=== PATIENT | female | born 1960 | race Caucasian/White ===

== ENCOUNTER 2019-09-11 06:54 | Inpatient (IN) ==
--- NOTE | 2019-08-22 10:07 | PAT Medication Instructions ---
Medication Instructions Date of Service August 22, 2019 Home Medications empagliflozin [Jardiance] 25 mg PO QAM hydrochlorothiazide 12.5 mg PO QAM metformin 1,000 mg PO BID DO NOT take the morning of surgery empagliflozin [Jardiance] 25 mg PO QAM hydrochlorothiazide 12.5 mg PO QAM metformin 1,000 mg PO BID Take evening before surgery metformin 1,000 mg PO BID Other Notes If you have any questions please call us at [phone] or [phone] or [phone] or [phone]
--- NOTE | 2019-08-22 14:41 | Anesthesiology Consultation ---
Date of Service August 22, 2019 Assessment & Plan (1) Encounter for pre-operative examination: CHECK BSG AM DOS Chart Review Chart Review: Acceptable Risk for Surgery (PENDING SURGEON-ORDERED PCP AND CARDIO CLEARANCES) and Patient seen in Pre Admission Testing Teaching & Discussion Instructed NPO after midnight before surgery, except medications with 15 cc of water. Medication instructions provided according to the PAT guidelines. History Surgery Operation Date: 09/11/19 09:15 Proposed Procedures p Left Total Knee Arthroplasty - Jatin Garibay DO Height/Weight Height: 5 ft 9 in Weight: 97.3 kg Allergies Allergy/AdvReac Type Severity Reaction Status Date / Time celecoxib AdvReac Unknown "made my Verified 08/16/19 10:35 legs swell" Medications Home Medications Medication Instructions Recorded Confirmed Last Taken empagliflozin [Jardiance] 25 mg PO QAM 08/16/19 08/16/19 Unknown hydrochlorothiazide 12.5 mg PO QAM 08/16/19 08/16/19 Unknown metformin 1,000 mg PO BID 08/16/19 08/16/19 Unknown Past Medical History Medical History Arthritis Bradycardia Asymptomatic Diabetes mellitus, type 2 Hiatal hernia Hypertension Obesity Exercise / Class Metabolic Activity II 4-5 Yardwork/Stairs/Walk up hill (DENIES CP OR SOB WITH 1 FOS) Past Family History Family History Brother Family hx of colon cancer AND ESOPHAGEAL CANCER Past Surgical History Surgical History (Updated 08/23/19 @ 13:29 by Lai Espinosa) History of bilateral tubal ligation History of cardiac cath For abnormal stress test. No stents placed. History of colonoscopy X MULTIPLE History of esophagogastroduodenoscopy (EGD) WITH DILITATION X 2-3 History of open reduction and internal fixation (ORIF) procedure LEFT ANKLE History of total hip arthroplasty R/L History of total knee replacement RIGHT Past Anesthesia History No Hx of Anesthesia Complications (OTHER THAN UNPLEASANT AWARENESS WITH TKA) and No Family Hx of Anesthesia Complications History of PONV No Hx of PONV and No Hx of Motion Sickness Social History Smoking Status: Never smoker Do You Dip or Chew Tobacco: No Hx Alcohol Use: No Hx Substance Use: No Review of Systems Pt denies any recent chest pain, shortness of breath, palpitations, cough, fever or URI. Physical Exam Vital Signs BP: 112/62 P: 59bpm SPO2: 98% RA T: 97.8 F R: 16 ENMT Mouth: + dentures (partial upper and lower), + poor dentition and + loose teeth (upper L incisor is VERY loose); no chipped teeth Thyromental Distance: > or= 3.5 Finger Breadths (4) Mallampati Class: I Mouth / Teeth: 1. VERY LOOSE Neck normal visual inspection; neck extension not limited Respiratory normal respiratory effort Auscultation: lungs clear to auscultation bilaterally Cardiovascular Rate/Rhythm: regular rhythm and + bradycardic Heart Sounds: no murmur Vessels: no carotid bruit Testing Laboratory Results 08/22/19 14:14 08/22/19 14:14 PT 10.9 Seconds (9.0-12.0) 08/22/19 14:14 INR 1.1 (0.9-1.1) 08/22/19 14:14 APTT 26.3 Seconds (21.0-31.0) 08/22/19 14:14 Hemoglobin A1c 7.5 % (4.5-5.6) H 08/22/19 14:14 Urine Color Yellow 08/22/19 Unknown Urine Appearance Clear (Clear) 08/22/19 Unknown Urine pH 6.5 (4.5-7.5) 08/22/19 Unknown Ur Specific [place] 1.045 (1.000-1.030) H 08/22/19 Unknown Urine Protein Negative (Negative) 08/22/19 Unknown Urine Glucose (UA) 3+ (Negative) H 08/22/19 Unknown Urine Ketones Negative (Negative) 08/22/19 Unknown Urine Nitrite Negative (Negative) 08/22/19 Unknown Ur Leukocyte Esterase Negative (Negative) 08/22/19 Unknown Blood Type B Positive 08/22/19 14:14 Antibody Screen NEGATIVE 08/22/19 14:14 08/22/19 Unknown Urine Culture - Preliminary Urine,Clean Catch No growth - Less than 1,000 colonies/mL, Final report to follow. *Surgeon's office flagged re: elevated BSG/A1C Electrocardiogram Date: 08/22/19 Findings: + SB @ (49) Nonspecific ST abnormality. Compared with EKG of 01/12/2018, no significant change was found. Chest X-Ray Date: 08/22/19 Findings: + NAD Fixed hiatal hernia. Echocardiogram Date: 01/27/18 EF: 70% Left ventricular cavity size is normal. The LV wall thickness is normal. RV cavity size and systolic function are normal. LV diastolic function is normal. No significant valvular abnormalities noted. No pericardial effusion. Normal IVC size and collapsibility with inspiration.
--- NOTE | 2019-08-22 14:52 | XRay Report ---
XR chest Pre-admission PA/Lat CLINICAL HISTORY: pat preoperative evaluation COMPARISON STUDY: 07/31/2015 FINDINGS: Fixed hiatal hernia. Diaphragms are smooth. Lungs are clear. IMPRESSION: No acute process. Fixed hiatal hernia. ACT 112: Negative or not required by law. The above report was generated using voice recognition software. It may contain grammatical, syntax or spelling errors. Electronically signed by: Andriy Johnson M.D. 08/22/2019 2:51 PM
[2019-08-22 15:07] LABS: Basophils # (auto) 0.01 K/uL (0-0.2); Basophils % (auto) 0.2 %; Eosinophils # (auto) 0.09 K/uL (0-0.5); Eosinophils % (auto) 1.8 %; Hematocrit (blood only) 43.4 % (37-47); Hemoglobin 14.1 g/dL (12.0-16.0); Immature Granulocytes # (auto) 0.01 K/uL (0.00-0.02); Immature Granulocytes % (auto) 0.2 %; Lymphocytes # (auto) 1.43 K/uL (1.2-3.4); Lymphocytes % (auto) 28.7 %; Mean Corpuscular Hemoglobin 27.5 pg (25-34); Mean Corpuscular Hgb Conc 32.5 g/dL (32-36); Mean Corpuscular Volume 84.6 fL (80-100); Mean Platelet Volume 12.5 fL (7.4-10.4); Monocytes # (auto) 0.31 K/uL (0.11-0.59); Monocytes % (auto) 6.2 %; Neutrophils # (auto) 3.13 K/uL (1.4-6.5); Neutrophils % (auto) 62.9 %; Platelet Count 178 K/uL (130-400); RDW Coefficient of Variation 13.4 % (11.5-14.5); RDW Standard Deviation 41.1 fL (36.4-46.3); Red Blood Count 5.13 M/uL (4.2-5.4); White Blood Count 4.98 K/uL (4.8-10.8)
[2019-08-22 15:09] LABS: Appearance Urine Clear (Clear); Bilirubin Urine Negative (Negative); Blood Urine Negative (Negative); Color Urine Yellow; Glucose Urine UA 3+ (Negative); Ketones Urine Negative (Negative); Leukocyte Esterase Urine Negative (Negative); Nitrite Urine Negative (Negative); Protein Urine Negative (Negative); Specific Gravity Urine 1.045 (1.000-1.030); Urobilinogen Urine Negative (Negative); pH Urine 6.5 (4.5-7.5)
[2019-08-22 15:18] LABS: INR 1.1 (0.9-1.1); Partial Thromboplastin Time 26.3 Seconds (21.0-31.0); Prothrombin Time 10.9 Seconds (9.0-12.0)
[2019-08-22 15:20] LABS: Albumin Level 3.7 gm/dl (3.4-5.0); BUN Creatinine Ratio 14.3 (10-20); Calcium 9.4 mg/dl (8.5-10.1); Est GFR (African American) 78.1; Est GFR (Non-African American) 67.3; Potassium 3.4 mmol/L (3.5-5.1)
--- NOTE | 2019-08-22 15:35 | Electrocardiogram Report ---
Test Reason : Blood Pressure : / mmHG Vent. Rate : 049 BPM Atrial Rate : 049 BPM P-R Int : 190 ms QRS Dur : 096 ms QT Int : 474 ms P-R-T Axes : 069 043 055 degrees QTc Int : 428 ms Sinus bradycardia Nonspecific ST abnormality Abnormal ECG When compared with ECG of 12-JAN-2018 12:38, No significant change was found Confirmed by Augustine Saeed ([id number]) on 08/22/2019 3:35:34 PM Referred By: Jatin Garibay Confirmed By:Augustine Saeed
[2019-08-23 05:41] LABS: Estimated Average Glucose 169 mg/dl; Hemoglobin A1C 7.5 % (4.5-5.6)
--- NOTE | 2019-09-10 20:51 | History & Physical Report ---
Date of Service September 10, 2019 Assessment & Plan (1) Degenerative joint disease of left knee: I have indicated the patient for left total knee replacement. The risks, benefits and complications of surgery were explained to the patient which include but not limited to infection, acute blood loss, DVT/PE, injury to nerves, vessels, bone, soft tissue, arthrofibrosis, chronic pain, failure of the prosthesis, knee dislocation, leg length discrepancy, need for additional surgery, cardiac and pulmonary events and . The patient wished to proceed with surgery and informed consent was obtained at this time. We will plan for ASA BID post-operatively for DVT prophylaxis. Upon discharge the patient will be discharged home with home health services. Appropriate clearances by PCP and cardiology were obtained. History of Present Illness Chief Complaint: Left knee pain/djd Primary Care Provider: Tessy Hazel MD The patient is a 59 year old female who presents with complaints of severe left knee pain and DJD. The patient has failed outpatient conservative treatments to this point which included NSAIDs, corticosteroid injection, physical therapy and a home exercise/walking program. The patient's pain and limited function have progressed to the point where they severely hinder their activities of daily living and they no longer tolerate exercise programs. They are requesting to proceed with total knee replacement surgery. Allergies Allergy/AdvReac Type Severity Reaction Status Date / Time celecoxib AdvReac Unknown "made my Verified 09/11/19 07:17 legs swell" Home Medications Home Medications Medication Instructions Recorded Confirmed Type empagliflozin [Jardiance] 25 mg PO QAM 08/16/19 08/16/19 History hydrochlorothiazide 12.5 mg PO QAM 08/16/19 08/16/19 History metformin 1,000 mg PO BID 08/16/19 08/16/19 History Past Med/Surg History Medical History (Updated 09/11/19 @ 07:14 by Huma Salgado RN) Arthritis Bradycardia Asymptomatic Diabetes mellitus, type 2 Hiatal hernia Surgical History History of bilateral tubal ligation History of cardiac cath For abnormal stress test. No stents placed. History of colonoscopy X MULTIPLE History of esophagogastroduodenoscopy (EGD) WITH DILITATION X 2-3 History of open reduction and internal fixation (ORIF) procedure LEFT ANKLE History of total hip arthroplasty R/L History of total knee replacement RIGHT Family History Brother Family hx of colon cancer AND ESOPHAGEAL CANCER Social History Preferred Language: Ethiopian Communication Ability: Effective Fuels Engineer Required: No Beliefs That Will Affect Care: None Current Living Situation: Spouse Other Information That Helps Us Care for You: No Feels Safe at Home: Yes Safety Concerns: Feels Safe At This Time Smoking Status: Never smoker Do You Dip or Chew Tobacco: No ; Second Hand Exposure: Yes (FATHER SMOKED A PIPE) ; Hx Alcohol Use: No Hx Substance Use: No Review of Systems Review of Systems: All systems reviewed & are unremarkable except as noted in HPI & below Constitutional: as per Subjective / HPI Physical Exam Physical Exam: LLE NVSI +EHL/FHL/TA/GS SILT grossly, +2 DP pulse, compartments soft NT, limited painful ROM, 0-115 degrees of flexion, +crepitus. Constitutional: WD/WN, vitals as above Eyes: PERRL, conjunctivae normal, anicteric sclerae ENMT: external ear and nose normal, oropharynx normal Neck: trachea midline, no thyromegaly Respiratory: normal respiratory effort, lungs clear to auscultation Cardiovascular: RRR, no murmur, no edema Gastrointestinal (Abdomen): normal bowel sounds, soft, nontender, no hepatosplenomegaly Musculoskeletal: no cyanosis or clubbing, extremities motor strength 5/5 Skin: no rashes, warm and dry Neurologic: patellar DTR's 2+ bilat, sensation intact Psychiatric: A+Ox3, euthymic affect Lymphatic: no cervical or axillary lymphadenopathy Results & Data Diagnostic Findings Multiple views of the knee demonstrates severe tricompartmental DJD with complete loss of the patellofemoral and moderate loss of the medial and lateral joint space. +osteophytes, +sclerosis, +subchondral cysts.
[~2019-09-11 06:54] MED LIST: ACETAMINOPHEN 500 MG TAB PO SCH; BUPIVACAINE 0.25% 30 ML VIAL ONE; BUPIVACAINE 0.5 % 5 MG/1 ML PF 10ML VIAL ONE; CEFAZOLIN 2000MG 2,000 MG/15 ML SYR IV SCH; FAMOTIDINE 20 MG TAB PO SCH; GABAPENTIN 600 MG DOSE PO SCH; LR 15ML/HR IV SCH; METOCLOPRAMIDE HCL 10 MG TABLET PO SCH; ROPIVACAINE 0.5% HCL/PF 150 MG, BUPIVACAINE 0.5% MPF 30 ML, EPINEPHrine 30MG/30ML (OR U... INSTIL SCH; TRANEXAMIC ACID 1,000 MG **IV Intra-op IV SCH; TRANEXAMIC ACID 1,000 MG **IV Pre-op IV SCH; dexAMETHasone 4 MG TAB PO SCH
--- NOTE | 2019-09-11 07:19 | History & Physical Bridge Note ---
Date of Service September 11, 2019 History & Physical Bridge Note I have examined the patient, reviewed the History & Physical and in the interval since the performance of the History & Physical I have noted the following changes of clinical significance: no changes noted
[2019-09-11] MEDS ORDERED: ONDANSETRON INJ 2 MG/ML 2 ML VIAL IV PRN ×2 (08:02→12:50)
[2019-09-11] MEDS ORDERED: LABETALOL HCL IV 5 MG/ML 20ML IV PRN (08:02)
[2019-09-11] MEDS ORDERED: ePHEDrine sulfate 50 MG/ML AMP IV PRN (08:02)
[2019-09-11] MEDS ORDERED: PHENYLEPHRINE 100MCG/ML 5ML SYR IV PRN (08:02)
[2019-09-11] MEDS ORDERED: MEPERIDINE HCL 25 MG/ML CARP IV PRN (08:02)
[2019-09-11] MEDS ORDERED: ATROPINE SULFATE 0.1 MG/ML 10ML SYR IV PRN (08:02)
[2019-09-11] MEDS ORDERED: HYDROmorphone INJ 1 MG/ML SYRINGE IV PRN (08:02)
[2019-09-11] MEDS ORDERED: fentaNYL citrate 100 MCG/2 ML VIAL IV PRN (08:02)
[2019-09-11] MEDS ORDERED: MIDAZOLAM HCL 1 MG/ML 2ML VIAL ONE ×2 (08:37→09:28)
[2019-09-11] MEDS ORDERED: fentaNYL citrate 100 MCG/2 ML VIAL ONE (08:37)
[2019-09-11] MEDS ORDERED: BACITRACIN INJ 50,000 UNIT VIAL ONE (08:50)
[2019-09-11] MEDS ORDERED: ORTHO JOINT ANESTHETIC ONE (08:50)
[2019-09-11] MEDS ORDERED: LIDOCAINE HCL 2% 2 ML VIAL/AMP(20MG/ML) INFIL ONE (09:30)
[2019-09-11] MEDS ORDERED: PROPOFOL IV EMULSION 10 MG/ML 20 ML VIAL IV ONE ×2 (09:30→09:51)
--- NOTE | 2019-09-11 11:19 | Post Operative Brief Note ---
Immediate Post Op Note v1 Date of Surgery September 11, 2019 Pre & Post Diagnosis Operation Date: 09/11/19 09:10 Pre-Op Diagnosis: LEFT KNEE OSTEOARTHRITIS Post-Op Diagnosis: LEFT KNEE OSTEOARTHRITIS I identified the patient and participated in the time-out.: Yes Procedure Operation Date: 09/11/19 09:10 Actual Procedures p Left Total Knee Arthroplasty(Left) - Jatin Garibay DO Surgeon Jatin Garibay DO Port Surveyor Diaz Reyes Estimated Blood Loss 50 Findings Consistent with Post-Op Diagnosis Fluids 1000 cc LR Specimens Proximal tibia and distal femur bone fragments Anesthesia Type Spinal MAC Complications none Disposition Disposition: Recovery Room Overlapping Procedure I was present for: the critical portions of procedure. I was immediately available: during the entire case. Back up surgeon: was not required during procedure.
--- NOTE | 2019-09-11 11:21 | Operative Report ---
Post Operative Report Pre & Post Diagnosis Operation Date: 09/11/19 09:10 Pre-Op Diagnosis: LEFT KNEE OSTEOARTHRITIS Post-Op Diagnosis: LEFT KNEE OSTEOARTHRITIS I identified the patient and participated in the time-out.: Yes Procedure Operation Date: 09/11/19 09:10 Actual Procedures p Left Total Knee Arthroplasty(Left) - Jatin Garibay DO Surgeon Jatin Garibay DO Business Solutions Consultant Diaz Reyes Estimated Blood Loss 50 Findings Consistent with Post-Op Diagnosis Fluids 1000 cc LR Specimens Proximal tibia and distal femur bone fragments Anesthesia Type Spinal MAC Complications none Disposition Disposition: Recovery Room Indications The patient is a 59-year-old female presents with long history of severe left knee tricompartmental DJD and failed outpatient conservative treatments including NSAIDs, bracing, injections and home walking/exercise program. The patient's symptoms have progressed to the point where it has been difficult to perform normal activities of daily living. I have indicated the patient for a left total knee arthroplasty, the risks and benefits and complications of the procedure include but are not limited to infection bleeding damage to bone, nerves, vessels, surrounding soft tissue, blood clots, loss of function, leg length discrepancy, dislocation, failure of the components, need for additional surgery and . The patient wished to proceed with surgery at this time and informed consent was obtained. Appropriate clearances were obtained. Description of Procedure COMPONENTS USED: Reena persona knee system: Femur size 8, Tibia size D tibial articulating surface 10 PS, Patella 29 mm Following induction of spinal anesthesia, a tourniquet was applied to the proximal aspect of the thigh and the patient's left leg was prepped and draped in the usual sterile manner. A timeout was performed, patient identified and site giancarlo confirmed. Appropriate pre-operative IV antibiotics were given. The limb was exsanguinated with an Esmarch bandage and tourniquet was inflated to 300 mmHg. A longitudinal midline incision was made over the anterior knee. Subcutaneous tissue was sharply dissected down to fascia. Electrocautery was used for hemostasis. Next a parapatellar arthrotomy was performed. Patella was everted and the knee was flexed. A Lynn retractor was used to expose the synovium above on the anterior aspect of the femur and removed down to bone. Next, the anterior fat pad was removed to aid in visualization. The medial face of the tibia was cleared of soft tissue first with a Bovie and a rosales elevator. This tissue was retracted posteriorly using a blunt Hohmann. Next, the extra-medullary tibial cutting guide was placed to the anterior aspect of the tibia. The tibia resection level was set taking 2mm from the defective tibial condyle. Resection depth was once again confirmed with xiomara wing. The medial and lateral collateral ligament was protected with two Hohmann retractors. The tibia guide was removed and proximal tibial bone fragment removed utilizing straight osteotome, electrocautery and Jose. Next, the distal femur intramedullary canal was accessed utilizing the step drill. The intramedullary distal femur cutting guide was placed into the canal and pinned into place. The distal femur was cut on the 5 degree setting. Next the cutting guide was removed and the femur was sized. Care was taken to ensure appropriate battery checker all rotation and 3 degree holes were drilled. A size 8 4-in-1 cutting block was placed on the distal end of the femur and secured into place with two short headed screws. Two bent Hohmann retractors were placed to protect the medial and lateral collateral ligaments. The oscillating saw was used to cut anterior, posterior, anterior chamfer and posterior chamfer. The four and one cutting block was removed and bone fragments excised. Laminar survey party chief was placed laterally and the ACL and PCL were removed followed by the medial meniscus and posterior medial osteophytes. Aquamantys was utilized for any posterior medial bleeders and Orthomix injected into the posterior medial capsule. A laminar survey party chief was then placed in the medial compartment and the lateral meniscus and posterior osteophytes were removed. Aquamantys was utilized for any posterior lateral bleeders and Orthomix injected into the posterior lateral capsule. Next, drop candie and spacer block were placed with the leg in flexion and extension to assess alignment and flexion/extension gaps. Next, the proximal tibia was assessed and two bent Hohmans were placed medial and lateral to aid in visualization. The appropriate tibia size and rotation was selected and a size D tibial plate was pinned into place with appropriate rotation. Preparation of the tibia was completed utilizing the matching tibial drill and broach. I then turned my attention back to the distal femur in a trial femoral component was impacted into place. Appropriate femoral width was assessed and selected. Next the femur PS box cut guide was placed and cut made with the reciprocal saw and the PS box provisional placed. A trial size 10 PS tibia articular tray was placed and varus-valgus balance assessed in 0 degrees of extension and 30, 60 and 90 degrees of flexion. A final tibial articular surface size 10 PS was chosen. Assess was gained to the patella and caliper utilized to measure width. The patella reamer was utilized and remaining bone removed with oscillating saw. A size 29 mm patella button was selected and the patella pegs drilled. Trial patella button was placed and tracking was assessed. The knee was found to be well balanced, well aligned with excellent patella tracking. The trials were removed and final components were obtained and assembled. The knee was irrigated copiously with sterile saline solution mixed with bacitracin. Access to the proximal tibia was once again obtained utilizing to the Hohmans and the proximal tibia and distal femur were dried with lap sponges. The final components were cemented into place and all excess cement was removed. A trial tibial articular surface was placed while cemented hardened. Knee stability was once again assessed and the final component inserted. A Betadine soak was performed. After 3 minutes, the hip was once more irrigated with copious sterile saline solution with bacitracin. The knee was injected with the remaining Orthomix which includes a combination of Ropivicaine 0.5% 150mg, Bupivicaine 0.5%/Epinephrine 1:200,000 30ml, Toradol 30mg, Dexamethasone 4mg, Ketamine 10mg, Clonidine 100mcg and NSS 30ml solution. The capsulotomy was closed with #1 Vicryl followed by subcutaneous closure with 2-0 Vicryl suture and a 3-0 V-lock suture. Skin closure was performed using Prineo dressing followed by Telfa, 4 x 4s and soren wrap. Tourniquet was deflated at 97 minutes. The patient tolerated the procedure well and was taken to the PACU in stable condition. Due to the complex nature of the procedure, the entire surgery was performed with the operational assistance of Diaz Reyes PA-C. The gallery assistant, under direct supervision, was involved in the actual performance of all aspects of the surgical procedure including patient positioning, hemostasis, tissue retraction, instrument management and wound closure. I attest to the content of the Intraoperative Record and any orders documented therein. Any exceptions are noted below.
--- NOTE | 2019-09-11 12:10 | XRay Report ---
LEFT KNEE 2 VIEWS History: Left total knee arthroplasty. Degenerative arthritis. Postop. FINDINGS: The patient is status post a left total knee arthroplasty. The hardware is intact. No fract ure or dislocation. IMPRESSION: Left total knee arthroplasty. No evidence for hardware complication. ACT 112: Negative or not required by law. Electronically signed by: Dexter Colbert M.D. 09/11/2019 12:09 PM
--- NOTE | 2019-09-11 12:37 | Anesthesiology Progress Note ---
Date of Service September 11, 2019 Anesthesia Post Procedure Vital Signs Vital Signs: Temp Pulse Pulse Resp BP Pulse Ox 09/11/19 12:25 36.4 C L 45 L 16 103/62 98 09/11/19 12:15 50 L 17 116/66 100 09/11/19 12:05 47 L 14 120/61 100 09/11/19 11:55 48 L 14 106/62 100 09/11/19 11:45 53 L 15 99/52 L 99 09/11/19 11:37 36.7 C 59 L 18 98/57 L 96 09/11/19 07:32 36.9 C 50 L 20 146/85 H 99 Pain Intensity Left Knee: Pain Intensity: 1 Transfer of Care Handoff Completed per policy Notes Mental Status: alert / awake / arousable Patient Amnestic to Procedure: Yes Nausea / Vomiting: adequately controlled Pain: adequately controlled Airway Patency, RR, SpO2: stable & adequate BP & HR: stable & adequate Hydration State: stable & adequate Neuraxial Anesthesia: was administered and sensory block is resolving Anesthetic Complications: no major complications apparent and Pt Satisfied with anesthetic care
[2019-09-11] MEDS ORDERED: bisacodyL 10 MG SUPP PR PRN (12:50)
[2019-09-11] MEDS ORDERED: MAGNESIUM HYDROXIDE SUSP 30 ML UDC PO PRN (12:50)
[2019-09-11] MEDS ORDERED: HYDROmorphone INJ 0.5 MG/0.5 ML SYR IV PRN (12:50)
[2019-09-11] MEDS ORDERED: NALOXONE HCL 0.4 MG/1 ML VIAL/CARP IV PRN (12:50)
[2019-09-11] MEDS ORDERED: METOCLOPRAMIDE HCL INJ 5 MG/ML 2 ML VIAL IV PRN (12:50)
[2019-09-11] MEDS: SODIUM CHLORIDE 0.9% 1000ML 1,000 ML IV SCH ×2 (13:09→23:19)
[2019-09-11] MEDS: ACETAMINOPHEN 500 MG TAB PO SCH ×2 (13:09→22:26)
[2019-09-11] MEDS ORDERED: PHARMACY GLYCEMIC MGMT CONSULT PRN (13:36)
--- NOTE | 2019-09-11 13:40 | Pharmacy Report ---
Glycemic Control Consultation - Date of Service September 11, 2019 - Scope Scope: Glycemic Pharmacist consulted by Dr Garibay on 09/11/2019 for glycemic control and to write orders per [facility] inpatient glycemic control protocol - Objective Weight: 94.892 kg Accuchecks BSG (last 24hrs): 09/11/19 09/11/19 07:24 12:35 POC Glucose 108 H 142 H HbA1c: Hemoglobin A1c 7.5 % (4.5-5.6) H 08/22/19 14:14 - Recent Pertinent Medications Outpatient Anti-diabetic Regimen: * Jardiance 25 mg daily plus metformin 1 gm PO BID * A1c = 7.8 % 08/22/2019 Risk Factors for Insulin Resistance: * Steroids: dexamethasone 8 mg PO preop plus dexamethasone 4 mg topically * Recent Surgery:POD 0 for L TKA * Diet: T2DM - Assessment & Plan Assessment & Plan: ASSESSMENT: * Ms Felix is a 59 y/o F with a PMH of moderately controlled T2DM who presents with L TKA. Patient on two oral medications at home. BSGs today are 108-142 mg/dL. * ADA & AACE recommend a goal blood sugar range 140-180 mg/dl for the majority of critically ill & non-critically ill patients. However, more stringent targets may be selected in individual cases. Will utilize more stringent goal of 110-140mg/dl based on patient age & comorbidities. Additionally, tighter glycemic control is warranted to facilitate wound healing. * Due to steroids utilized during surgery, give full weight-based stress of 2 of Lantus. Utilize stress of 3 Novolog coverage for now. * Pt is maintained on oral antidiabetic agents as an outpatient * Oral agents are not recommended for inpatient use d/t drug interactions, changing PO intake, and difficulty titrating for acute hyper/hypoglycemia. ADA recommends re-initiating outpatient oral agents 1-2 days prior to discharge if/when appropriate if they were held on admission. * Will hold oral agents for admission and utilize SQ basal bolus insulin regimen which is the recommended regimen for inpatient glycemic control. * Will initiate weight based insulin dosing for insulin baltazar patient and titrate based on BSG trends. PLAN FOR INPATIENT GLYCEMIC CONTROL: * Holding outpatient oral diabetes medications * Basal insulin * Lantus 30 units SQ x 1 then Lantus 0-25 based upon blood sugar BID * Bolus insulin * NovoLog per scale ACHS or Q6hrs while NPO * Goal Range: Low 110 mg/dL - High 140 mg/dL * Correction Factor: 15 mg/dL/unit * Nutritional / Prandial insulin per carb ratio of 1 unit per 6 grams CHO consumed * Please note that the plan above was derived based on current level of insulin resistance and hospital stress. These recommendations are appropriate for inpatient admission only. Plan of care upon discharge will need to be reassessed to avoid potential outpatient hypo/hyperglycemia. Thank you.
[2019-09-11] MEDS ORDERED: GLUCOSE 10 TABS/TUBE PO PRN (13:45)
[2019-09-11] MEDS ORDERED: DEXTROSE 50% 50 ML SYRINGE IV PRN (13:45)
[2019-09-11] MEDS ORDERED: GLUCAGON FOR INJ 1 MG VIAL IM PRN (13:45)
[2019-09-11] MEDS ORDERED: GLUCOSE 40% GEL 15 GM TUBE PO PRN (13:45)
[2019-09-11] MEDS ORDERED: CARBOHYDRATES FOR HYPOGLYCEMIA PO PRN (13:45)
[2019-09-11] MEDS ORDERED: INSULIN GLARGINE SOLOSTAR 100 UNITS/ML 3 ML PEN SC ONE (14:00)
[2019-09-11] MEDS: INSULIN ASPART 100 UNITS/ML 3 ML PEN SC SCH ×3 (14:14→22:26)
[2019-09-11] MEDS: CEFAZOLIN 2000MG 2,000 MG/15 ML SYR IV SCH (17:03)
--- NOTE | 2019-09-11 17:42 | Orthopedic Progress Note ---
Date of Service September 11, 2019 Assessment & Plan (1) Degenerative joint disease of left knee: s/p L TKA -ancef x 24 -DVT ppx: SCDs, TEDs, 81mg ASA BID -WBAT LLE -PT/OT -PO XR demonstrates well aligned well fixed prosthesis without fracture/dislocation -am labs -DC planning Subjective Post Operative Progress Note Patient seen sitting up in bed, comfortable, denies complaints, pain well controlled, no acute issues. Review of Systems Review of Systems: All systems reviewed & are unremarkable except as noted in HPI & below Constitutional: as per Subjective / HPI Physical Exam Physical Exam: LLE NVSI +EHL/FHL/TA/GS SILT grossly, +2 DP pulse, compartments soft NT, dressing cdi. Constitutional: WD/WN, vitals as above Results & Data ([facility]) Vital Signs (Past 12 Hours) Vital Signs Temp Pulse Pulse Resp BP Pulse Ox 09/11/19 15:54 36.7 C 42 L 18 108/66 97 09/11/19 14:55 36.7 C 47 L 18 108/67 95 09/11/19 13:49 36.6 C 18 102/60 100 09/11/19 12:25 36.4 C L 45 L 16 103/62 98 09/11/19 12:15 50 L 17 116/66 100 09/11/19 12:05 47 L 14 120/61 100 09/11/19 11:55 48 L 14 106/62 100 09/11/19 11:45 53 L 15 99/52 L 99 09/11/19 11:37 36.7 C 59 L 18 98/57 L 96 09/11/19 07:32 36.9 C 50 L 20 146/85 H 99
[2019-09-11] MEDS: OXYCODONE HCL IR 5 MG TAB (IMMEDIATE RELEASE) PO PRN (19:48)
[2019-09-11] MEDS ORDERED: SENNA 8.6 MG TAB PO SCH (21:00)
[2019-09-11] MEDS: DOCUSATE SODIUM 100 MG CAP PO SCH (22:25)
[2019-09-12] MEDS: OXYCODONE HCL IR 5 MG TAB (IMMEDIATE RELEASE) PO PRN ×3 (00:18→13:19)
[2019-09-12] MEDS: CEFAZOLIN 2000MG 2,000 MG/15 ML SYR IV SCH (00:19)
[2019-09-12 05:48] LABS: Hematocrit (blood only) 36.9 % (37-47); Hemoglobin 12.2 g/dL (12.0-16.0); Mean Corpuscular Hemoglobin 27.6 pg (25-34); Mean Corpuscular Hgb Conc 33.1 g/dL (32-36); Mean Corpuscular Volume 83.5 fL (80-100); Mean Platelet Volume 11.6 fL (7.4-10.4); Platelet Count 164 K/uL (130-400); RDW Coefficient of Variation 13.4 % (11.5-14.5); RDW Standard Deviation 40.4 fL (36.4-46.3); Red Blood Count 4.42 M/uL (4.2-5.4); White Blood Count 9.16 K/uL (4.8-10.8)
[2019-09-12 06:19] LABS: BUN Creatinine Ratio 24.1 (10-20); Calcium 8.6 mg/dl (8.5-10.1); Creatinine Clr Calc Pharmacy 95.2 ml/min; Est GFR (African American) 95.6; Est GFR (Non-African American) 82.5
[2019-09-12] MEDS: ACETAMINOPHEN 500 MG TAB PO SCH ×2 (06:21→13:18)
[2019-09-12] MEDS: DOCUSATE SODIUM 100 MG CAP PO SCH (07:40)
[2019-09-12] MEDS: INSULIN ASPART 100 UNITS/ML 3 ML PEN SC SCH ×2 (08:40→12:37)
[2019-09-12] MEDS ORDERED: hydroCHLOROthiazide 25 MG TAB PO SCH (09:00)
[2019-09-12] MEDS ORDERED: ASPIRIN 81 MG ECTAB PO SCH (09:00)
[2019-09-12] MEDS ORDERED: MULTIVITAMIN TAB PO SCH (09:00)
[2019-09-12] MEDS ORDERED: INSULIN GLARGINE SOLOSTAR 100 UNITS/ML 3 ML PEN SC SCH (09:00)
--- NOTE | 2019-09-12 09:18 | Orthopedic Progress Note ---
Date of Service September 12, 2019 Assessment & Plan (1) Degenerative joint disease of left knee: s/p L TKA POD#1 -ancef x 24 -DVT ppx: SCDs, TEDs, 81mg ASA BID -WBAT LLE -PT/OT -PO XR demonstrates well aligned well fixed prosthesis without fracture/dislocation -am labs: hgb 12.2 -DC planning - home with HH Subjective Post Operative Progress Note Patient seen sitting up in bed, comfortable, denies complaints, pain well controlled, no acute issues. Denies F/C/N/V/SOB/CP Review of Systems Review of Systems: All systems reviewed & are unremarkable except as noted in HPI & below Constitutional: as per Subjective / HPI Eyes: as per Subjective / HPI Physical Exam Physical Exam: LLE NVSI +EHL/FHL/TA/GS SILT grossly, +2 DP pulse, compartments soft NT, dressing cdi. Constitutional: WD/WN, vitals as above Results & Data ([facility]) Vital Signs (Past 12 Hours) Vital Signs Temp Pulse Resp BP BP Pulse Ox 09/12/19 07:10 36.5 C 48 L 16 144/79 H 100 09/12/19 03:13 36.5 C 51 L 16 116/73 98 09/11/19 23:08 36.8 C 49 L 16 119/75 97 Laboratory Results 09/12/19 09/12/19 09/12/19 Range/Units 08:27 05:33 05:33 WBC 9.16 (4.8-10.8) K/uL RBC 4.42 (4.2-5.4) M/uL Hgb 12.2 (12.0-16.0) g/dL Hct 36.9 L (37-47) % MCV 83.5 (80-100) fL MCH 27.6 (25-34) pg MCHC 33.1 (32-36) g/dL RDW Std Deviation 40.4 (36.4-46.3) fL RDW Coeff of Scotty 13.4 (11.5-14.5) % Plt Count 164 (130-400) K/uL MPV 11.6 H (7.4-10.4) fL Sodium 141 (136-145) mmol/L Potassium 4.0 (3.5-5.1) mmol/L Chloride 110 H (98-107) mmol/L Carbon Dioxide 29 (21-32) mmol/L Anion Gap 2.0 L (3-11) BUN 19 H (7-18) mg/dl Creatinine 0.79 (0.6-1.2) mg/dl Est Cr Clr Drug Dosing 95.2 ml/min Est GFR ( Amer) 95.6 Est GFR (Non-Af Amer) 82.5 BUN/Creatinine Ratio 24.1 H (10-20) Glucose 106 H (70-99) mg/dl POC Glucose 97 (70-99) mg/dl Calcium 8.6 (8.5-10.1) mg/dl 09/11/19 09/11/19 09/11/19 Range/Units 21:37 17:15 17:14 WBC (4.8-10.8) K/uL RBC (4.2-5.4) M/uL Hgb (12.0-16.0) g/dL Hct (37-47) % MCV (80-100) fL MCH (25-34) pg MCHC (32-36) g/dL RDW Std Deviation (36.4-46.3) fL RDW Coeff of Scotty (11.5-14.5) % Plt Count (130-400) K/uL MPV (7.4-10.4) fL Sodium (136-145) mmol/L Potassium (3.5-5.1) mmol/L Chloride (98-107) mmol/L Carbon Dioxide (21-32) mmol/L Anion Gap (3-11) BUN (7-18) mg/dl Creatinine (0.6-1.2) mg/dl Est Cr Clr Drug Dosing ml/min Est GFR ( Amer) Est GFR (Non-Af Amer) BUN/Creatinine Ratio (10-20) Glucose (70-99) mg/dl POC Glucose 152 H 176 H 164 H (70-99) mg/dl Calcium (8.5-10.1) mg/dl 09/11/19 Range/Units 12:35 WBC (4.8-10.8) K/uL RBC (4.2-5.4) M/uL Hgb (12.0-16.0) g/dL Hct (37-47) % MCV (80-100) fL MCH (25-34) pg MCHC (32-36) g/dL RDW Std Deviation (36.4-46.3) fL RDW Coeff of Scotty (11.5-14.5) % Plt Count (130-400) K/uL MPV (7.4-10.4) fL Sodium (136-145) mmol/L Potassium (3.5-5.1) mmol/L Chloride (98-107) mmol/L Carbon Dioxide (21-32) mmol/L Anion Gap (3-11) BUN (7-18) mg/dl Creatinine (0.6-1.2) mg/dl Est Cr Clr Drug Dosing ml/min Est GFR ( Amer) Est GFR (Non-Af Amer) BUN/Creatinine Ratio (10-20) Glucose (70-99) mg/dl POC Glucose 142 H (70-99) mg/dl Calcium (8.5-10.1) mg/dl
[2019-09-12] MEDS ORDERED: METFORMIN HCL 500 MG TAB PO SCH (17:00)
--- NOTE | 2019-09-12 18:59 | Discharge Summary ---
Date of Service September 12, 2019 Admission HPI Per Admitting Provider The patient is a 59 year old female who presents with complaints of severe left knee pain and DJD. The patient has failed outpatient conservative treatments to this point which included NSAIDs, corticosteroid injection, physical therapy and a home exercise/walking program. The patient's pain and limited function have progressed to the point where they severely hinder their activities of daily living and they no longer tolerate exercise programs. They are requesting to proceed with total knee replacement surgery. Principal Diagnosis Left total knee replacement Discharge Exam LLE NVSI +EHL/FHL/TA/GS SILT grossly, +2 DP pulse, compartments soft NT, dressing cdi. Constitutional WD/WN, vitals as above Discharge Data Allergies Allergy/AdvReac Type Severity Reaction Status Date / Time celecoxib AdvReac Unknown "made my Verified 09/11/19 07:17 legs swell" Consultations 09/11/19 12:50 Consult Case Management - Discharge Planning Routine Procedures Performed Operation Date: 09/11/19 09:10 Actual Procedures p Left Total Knee Arthroplasty(Left) - Jatin Garibay DO Ordered Studies 09/11/19 05:00 US - OR guided needle placemen Routine Hospital Course (1) Degenerative joint disease of left knee: The patient is a 59 -year-old female who presents with long standing history of severe left knee DJD and failed outpatient conservative treatments. The patient's symptoms have progressed to the point where it has been difficult to perform even normal activities of daily living. I indicated the patient for a left total knee arthroplasty, the risks, benefits and complications of the procedure include but not limited to infection, bleeding, damage to bone, nerves, vessels, surrounding soft tissue, may develop blood clots, loss of function, leg length discrepancy, dislocation, failure of the components, loosening of the components, the need for additional surgery and . The patient wished to proceed with surgery at this time and informed consent was obtained. Hospital Course: On 09/11/19 the patient was taken to the operating room, adequate anesthesia administered and underwent a left total knee arthroplasty. The patient tolerated the procedure well and was taken to the PACU in stable condition. Post-operatively the patient was started on a DVT ppx medication and given appropriate IV antibiotics. Consults were placed to physical therapy, occupational therapy and case management. On POD#1, the patient did well overnight and their pain was well controlled. Labs were drawn and the Hgb was 12.2. The patient progressed well with PT. Dressings were changed at this time and the incision was clean, dry and intact. The patients hospital stay was relatively uneventful and they were deemed stable by the orthopedic team and consultants to be discharged home with HH on 09/12/19. Discharge Instructions: Upon discharge the patient may weight bear as tolerates through their operative extremity. They were instructed to keep the incision clean and dry at all times. The patient may shower but should not submerge the incision, avoid bathing, pools and hot tubes. The patient was given a script for pain medication and should take as instructed. The patient was given a script for DVT ppx 81mg ASA BID and should take as directed. The patient was instructed to not drive or travel for long distances until cleared to do so. If the patient develops any symptoms of fevers, chills, nausea, vomiting, increased redness, swelling, pain or drainage from the surgical site, they should notify the office and/or proceed to the nearest emergency room. The patient should follow up in 10-14 days after surgery for their routine post-operative follow-up appointment and should call the office to confirm the date and time. s/p L TKA POD#1 -ancef x 24 -DVT ppx: SCDs, TEDs, 81mg ASA BID -WBAT LLE -PT/OT -PO XR demonstrates well aligned well fixed prosthesis without fracture/dislocation -am labs: hgb 12.2 -DC planning - home with Total Time Total Time Spent Total Time Spent (In Minutes): 30 minutes Discharge Plan Discharge Items Patient Disposition: Home - Home Health Services Reason For Visit: LEFT KNEE OSTEOARTHRITIS Discharge Diagnosis: Left total knee replacement Condition on Discharge: Good Activity: Per Instructions section Lifting: Wait until after follow-up appointment Bathing: Keep incision dry Bathing Comment: No bathing, pools or hot tubs Sexual Activity: Wait until after follow-up appointment Exercise/Sports: Wait until after follow-up appointment Driving/Machine Use: No driving Weightbearing: Full weightbearing Non-emergency contact: Primary Care Provider and Surgeon Call non-emergency contact if: you have any medication questions, your symptoms worsen, your pain is not controlled, your pain is worsening, your pain is unusual for you, your pain is concerning for you, you have a fever, your temperature is above 101, your wound has increased redness, your wound has increased drainage and your wound pain has increased Follow-up/Referrals: Tessy Hazel MD [Primary Care Provider] - Diet: Carb Consistent or DM2 Addtl Attending Provider Instructions: ACTIVITY RECOMMENDATIONS: SELF CARE INSTRUCTIONS AFTER TOTAL KNEE REPLACEMENT A. You may need to continue a physical therapy program after discharge from the hospital. There are several options available to you. Your doctor will assist you in selecting the best one for you. 1. An out-patient facility 2 to 3 times a week for therapy or home therapy. 2. Continue working on all exercises taught to you in the hospital. Your goals should be to increase bending of your knee to 90 degrees and beyond and to fully straighten your knee. B. You may progress at your own pace from walking with a walker or crutches to a cane; then to no assistive devices. C. Make walking a part of your daily routine. Be up as much as comfortable with rest periods throughout the day. Rest with leg elevation is very important. Use the ice wrap frequently for the first 3-4 weeks. D. There are no restrictions on activities. You may ride in a car, shop, participate in alteration manager and all social activities. E. Wear the long elastic stockings (CHINO hose) 20 hours a day for 2 weeks after surgery. They can be removed several times a day for laundering and for a bath. F. You may shower, no tub baths until cleared by your doctor. SPECIAL CARE INSTRUCTIONS: VERY IMPORTANT TO READ AND REVIEW A. There are a few signs you need to watch for after you are home. Call [facility] if you notice any of the followin. Increased severe knee pain. Some pain is expected especially when you exercise. 2. Increased swelling in your leg or knee; pain or swelling of the calf muscle in either lower leg. 3. Any fluid drainage from the incision. 4. Shortness of breath or chest pain. B. Please call [facility] at if you have any concerns or questions about your operation or recovery. The doctor or his nurse will return your call promptly. C. You must take antibiotics before dental work, bladder, bowel or other surgery. Your doctor will provide you with a permanent care to carry describing this precaution. IMPORTANT: * REMEMBER TO TAKE ASPIRIN, 81 MG, TWICE DAILY FOR 4 WEEKS UNLESS OTHERWISE DIRECTED. THIS IS YOUR BLOOD THINNER. * HIGH RISK PATIENTS MAY BE PRESCRIBED A STRONGER BLOOD THINNER. THIS WILL BE PROVIDED AT DISCHARGE. * CALL IF INCREASED PAIN, REDNESS, DRAINAGE OR FEVER GREATER THAT 101. * WEAR CHINO HOSE 20 HOURS PER DAY FOR 2 WEEKS. *DERMABOND Prineo- This is a mesh tape dressing that is covered with glue. It should remain in place until the incision is properly healed, usually 10-14 days. This dressing is designed to naturally slough off. You may trim the excess mesh tape as it peels off. Incision may be briefly wet in a shower. Dry immediately by blotting with a clean, dry towel. Do not bath or swim until instructed by your doctor. Do not scratch, rub, or pick at the dressing. Do not apply any topical ointments or lotions until dressing is completely removed and/or instructed by your doctor. There may be a small piece of suture material at one end of your incision. Do not pull or trim this. If it is bothersome or catching on clothing, you may cover it with a band-aid. FOLLOW UP VISIT: If appointment is not already scheduled: Please call [facility] to make a follow-up appointment for 2 weeks after your surgery at . Pending Studies at Discharge: No Stand-Alone Forms: My [facility], Opioid Pain Management, Smoking Cessation Medications and DC Order Prescriptions: New aspirin [Ecotrin Low Strength] 81 mg Tablet,Delayed Release (Dr/Ec) 81 mg PO BID 28 Days Qty: 56 RF: 0 acetaminophen 500 mg Tablet 1,000 mg PO Q8 PRN (Reason: pain/fever) Qty: 90 RF: 0 oxycodone 5 mg Tablet 5 mg PO Q6H MDD 6 tabs PRN (Reason: pain) Qty: 30 RF: 0 sennosides [Senokot] 8.6 mg Tablet 17.2 mg PO HS PRN (Reason: constipation) Qty: 28 RF: 0 Continued metformin 1,000 mg Tablet 1,000 mg PO BID RF: 0 hydrochlorothiazide 12.5 mg Capsule 12.5 mg PO QAM RF: 0 Jardiance 25 mg Tablet 25 mg PO QAM RF: 0 Discharge Orders: Discharge Order (Routine); Ordered 09/12/19 Ordered By: Jatin Bah/Other Patient Handouts: Diabetes Manage A1C Test Admission Data Admit Date/Time: 09/11/19 11:43 Attending Provider: Jatin Garibay Admit Provider: Jatin Garibay Primary Care Provider: Tessy Hazel Other Interventions: Discharge Summary Assessment (RN) Last Done: 09/12/19 12:45 DC Date/Time DO NOT enter until pt leaves facility: 09/12/19 14:14
== END 2019-09-12 14:14 | disposition home health service (06) | DRG 470 ==
LOC: ASU 06:54 → 3E 11:43